=== PATIENT | male | born 2000 | race Caucasian/White ===

== ENCOUNTER 2019-03-07 14:33 | Emergency (ER) | payer MEDICAID ==
[2019-03-07] MEDS ORDERED: LORazepam 2 MG/ML VIAL (FOR ER USE) IM ONE (15:15)
[2019-03-07 16:47] VITALS: BP_SYST 136
== END 2019-03-07 16:47 | disposition home or self-care (01) ==
LOC: SED 14:33
DX: F15.10 Other stimulant abuse, uncomplicated (principal)
CPT/HCPCS: 70450; 96372; 99284; J2060